=== PATIENT | female | born 1995 | race Caucasian/White ===

== ENCOUNTER 2018-08-19 16:32 | Emergency (ER) | payer SELFPAY ==
[2018-08-19 16:49] VITALS: BP 135/67; PULSE 106; RESP 16; TEMP 36.7; O2SAT 100
--- NOTE | 2018-08-19 17:18 | W.ED.GENAD ---
Discharge Plan Disposition Patient Disposition: HOME Condition: Good Discharge Details Chief Complaint: BodyFldExp Clinical Impression: Exposure to potentially hazardous body fluids Primary Care Provider: Yogi Dotson ED Provider: Bigg Templeton Home Meds and New Rx's Prescriptions: No Action epinephrine [EpiPen 2-Jack] 0.3 MG/0.3 ML auto-injector 1 dose IM PRN Qty: 1 RF: 0 Prenatabs Rx 1 EACH tablet 1 ea PO DAILY RF: 0 Discharge Instructions Instructions: Postexposure Prophylaxis (ED) Additional Instructions: Continue to watch the site of injury and return for any signs of infection and feel free to return to the emergency department for reevaluation. Clean keep wound clean and dry. Follow-up with occupational medicine for any further needs or concerns Referrals: Occupational Medicine [Outside] (As needed for reassessment or further treatment) Discharge Data Discharge Date/Time-TO BE ENTERED AT DEPARTURE: 08/19/18 17:57 Medical Decision Making Patient presenting to the emergency department for chief complaint of right thumb injury. 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 She states bleeding initially occurred and she thoroughly washed the wound and cleanse the wound also with alcohol. She states she was sent here for evaluation due to workplace injury. Patient denies any other injury or trauma. Patient was already given orders for lab testing by dental provider that she works with. Examination of the location of injury shows no bleeding, no deep trauma, no gaping wound, no erythema. Wound was not even visible per naked eye. The patient has already been given labs for workplace injury and no obvious emergent injury is noted. I feel patient is safe for discharge. Patient was offered HIV prophylaxis which she declined at this time. Patient reports that her her knowledge source patient had no communicable diseases. Patient encouraged to follow-up with occupational medicine as needed. Return precautions discussed. After discussion of diagnosis and plan of care patient has no further needs, questions, or concerns and states clear understanding to return to the emergency department for any worsening symptoms or further concerns HPI General Mode of arrival: ambulatory. Date/Time Provider Initiated Documentation: 08/19/18 17:02. Limitations to Documentation: no limitations. Information obtained by: patient and RN notes reviewed. History of Present Illness 22 year old F presents to the emergency department with the chief complaint of work injury, body fluid exposure, Quality is described as other (Denies pain), and is localized to the right and upper extremity. Patient started experiencing this hour(s) (1) and it has been constant. Patient notes no other symptoms.. Patient did receive the following treatments prior to arrival, none Related Data Home Medications Medication Instructions Recorded Confirmed epinephrine [Epipen 2-Jack] 1 dose IM PRN #1 pack 10/08/12 08/23/18 [id number] 1 ea PO DAILY 07/21/14 08/23/18 [Prenatabs Rx Tablet] Allergies Allergy/AdvReac Type Severity Reaction Status Date / Time Penicillins Allergy Unverified 08/23/18 14:19 venom-honey bee Allergy yellow Unverified 08/23/18 14:19 jackets- swelling General Stated Complaint: BodyFldExp SOHAN: 4 Review of Systems Constitutional Denies chills and Denies fever(s) Musculoskeletal Denies limited range of motion, Denies stiffness and Denies tingling Integumentary/Breasts Reports as per HPI, Denies erythema, Denies rash and Denies skin swelling Neurologic Denies sensory deficit and Denies tingling PFSH Medical History Ovarian cyst Family History Mother Breast cancer, BRCA1 positive Grandmother Breast cancer Great grandmother Breast cancer Social History Smoking/Tobacco Use Status: Current-Occasional Drug use: Never Do you feel safe in your relationship?: Yes History History 2 Para 2 Hx # Term Pregnancies Multiple births Hx # Pregnancies Ectopic pregnancies AB induced Hx Number of Living Children AB spontaneous Exam Const General: cooperative, no acute distress and not ill appearing Orientation: alert, awake and oriented x3 HENMT Mouth: moist mucous membranes Resp Effort & Inspection: normal respiratory effort, able to speak in complete sentences and no respiratory distress Skin General skin exam: no rashes or lesions noted Trauma: no lacerations or abrasions Wounds: no wounds Neuro General: alert, awake, oriented x3, moves all extremities and no focal motor deficits Sensory Exam: no sensory deficits noted Extrem Right upper extremity: hand Details: normal to inspection; swelling, no lacerations, no ecchymosis and no puncture wound Course Vital Signs Temperature 36.7 C 08/19/18 16:49 Pulse 106 H 08/19/18 16:49 Respiratory Rate 16 08/19/18 16:49 Blood Pressure 135/67 08/19/18 16:49 Pulse Oximetry 100 08/19/18 16:49 Temperature 36.7 C 08/19/18 16:49 Temperature Source Skin 08/19/18 16:49 Pulse 106 H 08/19/18 16:49 Respiratory Rate 16 08/19/18 16:49 Respiratory Effort Non-Labored 08/19/18 16:49 Blood Pressure 135/67 08/19/18 16:49 Blood Pressure Position Sitting 08/19/18 16:49 Pulse Oximetry 100 08/19/18 16:49 Oxygen Delivery Method Room Air 08/19/18 16:49 Oxygen Flow Rate 0 08/19/18 16:49 Pain Level 0 08/19/18 16:49
--- NOTE | 2018-08-19 17:26 | ED.GENADUL_ITS ---
Discharge Plan Disposition Patient Disposition: HOME Condition: Good Discharge Details Chief Complaint: BodyFldExp Clinical Impression: Exposure to potentially hazardous body fluids Primary Care Provider: Yogi Dotson ED Provider: Bigg Templeton Home Meds and New Rx's Prescriptions: No Action epinephrine [EpiPen 2-Jack] 0.3 MG/0.3 ML auto-injector 1 dose IM PRN Qty: 1 RF: 0 Prenatabs Rx 1 EACH tablet 1 ea PO DAILY RF: 0 Discharge Instructions Instructions: Postexposure Prophylaxis (ED) Additional Instructions: Continue to watch the site of injury and return for any signs of infection and feel free to return to the emergency department for reevaluation. Clean keep wound clean and dry. Follow-up with occupational medicine for any further needs or concerns Referrals: Occupational Medicine [Outside] (As needed for reassessment or further treatment) Discharge Data Discharge Date/Time-TO BE ENTERED AT DEPARTURE: 08/19/18 17:57 Medical Decision Making Patient presenting to the emergency department for chief complaint of right thumb injury. 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 She states bleeding initially occurred and she thoroughly washed the wound and cleanse the wound also with alcohol. She states she was sent here for evaluation due to workplace injury. Patient denies any other injury or trauma. Patient was already given orders for lab testing by dental provider that she works with. Examination of the location of injury shows no bleeding, no deep trauma, no gaping wound, no erythema. Wound was not even visible per naked eye. The patient has already been given labs for workplace injury and no obvious emergent injury is noted. I feel patient is safe for discharge. Patient was offered HIV prophylaxis which she declined at this time. Patient reports that her her knowledge source patient had no communicable diseases. Patient encouraged to follow-up with occupational medicine as needed. Return precautions discussed. After discussion of diagnosis and plan of care patient has no further needs, questions, or concerns and states clear understanding to return to the emergency department for any worsening symptoms or further concerns HPI General Mode of arrival: ambulatory . Date/Time Provider Initiated Documentation: 08/19/18 17:02 . Limitations to Documentation: no limitations . Information obtained by: patient and RN notes reviewed . History of Present Illness 22 year old F presents to the emergency department with the chief complaint of work injury, body fluid exposure, Quality is described as other (Denies pain), and is localized to the right and upper extremity. Patient started experiencing this hour(s) (1) and it has been constant. Patient notes no other symptoms.. Patient did receive the following treatments prior to arrival, none Related Data Home Medications Medication Instructions Recorded Confirmed epinephrine [Epipen 2-Jack] 1 dose IM PRN #1 pack 10/08/12 08/23/18 vit,[id number] 1 ea PO DAILY 07/21/14 08/23/18 [Prenatabs Rx Tablet] Allergies Allergy/AdvReac Type Severity Reaction Status Date / Time Penicillins Allergy Unverified 08/23/18 14:19 venom-honey bee Allergy yellow Unverified 08/23/18 14:19 jackets- swelling General Stated Complaint: BodyFldExp SOHAN: 4 Review of Systems Constitutional Denies chills and Denies fever(s) Musculoskeletal Denies limited range of motion, Denies stiffness and Denies tingling Integumentary/Breasts Reports as per HPI, Denies erythema, Denies rash and Denies skin swelling Neurologic Denies sensory deficit and Denies tingling PFSH Medical History Ovarian cyst Family History Mother Breast cancer, BRCA1 positive Grandmother Breast cancer Great grandmother Breast cancer Social History Smoking/Tobacco Use Status: Current-Occasional Drug use: Never Do you feel safe in your relationship?: Yes History History 2 Para 2 Hx # Term Pregnancies Multiple births Hx # Pregnancies Ectopic pregnancies AB induced Hx Number of Living Children AB spontaneous Exam Const General: cooperative, no acute distress and not ill appearing Orientation: alert, awake and oriented x3 HENMT Mouth: moist mucous membranes Resp Effort & Inspection: normal respiratory effort, able to speak in complete sentences and no respiratory distress Skin General skin exam: no rashes or lesions noted Trauma: no lacerations or abrasions Wounds: no wounds Neuro General: alert, awake, oriented x3, moves all extremities and no focal motor deficits Sensory Exam: no sensory deficits noted Extrem Right upper extremity: hand Details: normal to inspection; swelling, no lacerations, no ecchymosis and no puncture wound Course Vital Signs Temperature 36.7 C 08/19/18 16:49 Pulse 106 H 08/19/18 16:49 Respiratory Rate 16 08/19/18 16:49 Blood Pressure 135/67 08/19/18 16:49 Pulse Oximetry 100 08/19/18 16:49 Temperature 36.7 C 08/19/18 16:49 Temperature Source Skin 08/19/18 16:49 Pulse 106 H 08/19/18 16:49 Respiratory Rate 16 08/19/18 16:49 Respiratory Effort Non-Labored 08/19/18 16:49 Blood Pressure 135/67 08/19/18 16:49 Blood Pressure Position Sitting 08/19/18 16:49 Pulse Oximetry 100 08/19/18 16:49 Oxygen Delivery Method Room Air 08/19/18 16:49 Oxygen Flow Rate 0 08/19/18 16:49 Pain Level 0 08/19/18 16:49
== END 2018-08-19 17:57 | disposition home or self-care (01) ==
PROVIDERS: Emergency Provider Nurse Practitioner Family; PCP Pediatrics
DX: S61.031A Puncture wound without foreign body of right thumb without damage to nail, initial encounter (principal); W26.8XXA Contact with other sharp object(s), not elsewhere classified, initial encounter; Z77.21 Contact with and (suspected) exposure to potentially hazardous body fluids; Y99.0 Civilian activity done for income or pay
CPT/HCPCS: 99281; 99282

== ENCOUNTER 2018-08-23 16:18 | Outpatient (REF) | payer OTHER, SELFPAY ==
--- NOTE | 2018-08-23 14:40 | PAPFT_PTH ---
PATIENT: ANIKET CAMACHO LOC: [facility] U#:[id number] AGE/SX: 22/F ROOM: RE08/23/[address]: Kaylah Perkins NP : 1995 BED: DIS: 08/23/2018 SPEC #: [id number] RECD: 08/23/18 16:41 STATUS: RYAN REQ #: [id number] CHASE: 08/23/18 14:[address]: Kaylah Perkins NP DEPT: [facility] Cytology RECD BY: Sima Chilel ENTERED: 08/23/18 16:42 SP TYPE: PAPFT OTHR DR: Yogi Dotson MD Tissues: 1 - CX/ENDOCX FOR PAP SMEARS Procedures: PAP THIN PREP/[facility] Screening Comments: [id number] (CHLAMYDIA/GC)
[2018-08-26 14:38] LABS: Chlamydia Result Negative; GC Result Negative; Specimen Description SEE COMMENTS
== END 2018-08-23 16:38 ==
LOC: LBN 16:18
PROVIDERS: PCP Pediatrics; Visit Provider Nurse Practitioner Women's Health
DX: Z12.4 Encounter for screening for malignant neoplasm of cervix (principal); Z11.3 Encounter for screening for infections with a predominantly sexual mode of transmission
CPT/HCPCS: 87491; 87591; 88142

== ENCOUNTER 2018-09-06 01:39 | Outpatient (CLI) | payer OTHER, SELFPAY ==
--- NOTE | 2018-09-06 13:08 | DI.US_ITS ---
SYMPTOMS/DIAGNOSIS: RIGHT-SIDED PELVIC PAIN, ? RIGHT OVARIAN CYST, R10.2 PELVIC ULTRASOUND: Transabdominal and transvaginal examination was performed. The uterus measures 9 cm long x 4.2 cm AP x 4.8 cm transverse. The endometrial stripe is within normal limits at 1.1 cm. No uterine mass is seen. The right ovary measures 4.5 x 2.7 x 2.8 cm. There is normal blood flow. No evidence of torsion is seen. There is a simple follicular cyst seen on the right ovary, the largest measures 2.2 cm. The left ovary measures 2.8 x 2.1 x 2.0 cm. There is normal blood flow to the left ovary. No evidence of torsion is seen. Small follicular cysts are present. No free pelvic fluid or hydronephrosis is identified. IMPRESSION: Normal pelvic ultrasound.
== END 2018-09-06 01:59 ==
PROVIDERS: PCP Pediatrics; Visit Provider Nurse Practitioner Women's Health
DX: R10.2 Pelvic and perineal pain (principal); N83.01 Follicular cyst of right ovary; N83.02 Follicular cyst of left ovary
CPT/HCPCS: 76830; 76856

== ENCOUNTER 2018-09-06 13:42 | Outpatient (CLI) | payer OTHER, SELFPAY ==
[2018-09-06 14:16] LABS: Bilirubin Negative (Negative); Blood Negative (Negative); Clarity Sl Cloudy; Glucose Negative (Negative); Ketones Negative (Negative); Leukocyte Esterase Trace (Negative); Nitrite Negative (Negative); Specific Gravity 1.015 (1.005-1.025); Urobilinogen 0.2 EU/dL (Up TO 0.2); pH 7.5 (5-8)
[2018-09-06 14:31] LABS: Bacteria Few HPF (Negative); Crystals Negative HPF (Negative); Epithelial Cells Many HPF (Negative); Mucus Negative (Negative); RBC Negative (0-2)
[2018-09-06 14:32] LABS: C & S Indicated? No/Sq. Contamination
[2018-09-06 16:17] LABS: TSH (W/Ref FT4) 0.84 uIU/mL (0.358-3.74)
== END 2018-09-06 14:02 ==
PROVIDERS: Visit Provider Nurse Practitioner Women's Health
DX: R30.0 Dysuria (principal); R63.4 Abnormal weight loss
CPT/HCPCS: 36415; 81003; 81015; 84443

== ENCOUNTER → 2020-05-17 13:54 | Outpatient (REF) | payer OTHER, SELFPAY ==
[2020-05-18 15:29] LABS: Chlamydia Result Negative (Negative); GC Result Negative (Negative)
== END ==
LOC: LBN 13:54
PROVIDERS: Visit Provider Nurse Practitioner Women's Health
DX: Z11.3 Encounter for screening for infections with a predominantly sexual mode of transmission (principal)
CPT/HCPCS: 87491; 87591

== ENCOUNTER → 2020-05-21 22:18 | Outpatient (REF) | payer OTHER, SELFPAY | LOC: LBN 22:18 | PROVIDERS: Visit Provider Advanced Practice Midwife | DX: N89.8 Other specified noninflammatory disorders of vagina (principal) | CPT/HCPCS: 87480; 87510; 87660 ==